=== PATIENT | male | born 1965 | race Two or more races ===

== ENCOUNTER 2016-12-28 13:26 | Outpatient (CLI) | payer MEDICAID ==
--- NOTE | 2016-12-28 15:40 | Ultrasound Report ---
LEFT GROIN ULTRASOUND: 12/28/2016 CLINICAL HISTORY: Left groin mass. There is also a remote history of cancer. TECHNIQUE: Real-time scanning was performed with traffic workforce representative static images obtained. FINDINGS: Left groin ultrasound shows no significant abnormality. No hernia or mass is seen. Findings on ultrasound are normal in the left groin. If there is still strong clinical concern liane yoder in regard to the left groin, recommend a contrast-enhanced pelvic CT with extension of the imagi ng through the groin for further evaluation. IMPRESSION: NORMAL LEFT GROIN ULTRASOUND. IF CLINICAL SYMPTOMS WARRANT, ADDITIONAL STUDIES COULD BE OBTAINED SUCH CONTRAST-ENHANCED CT OF THE PELVIS WITH IMAGING EXTENDING THROUGH THE GROIN. JOB #: [id number] EXT JOB #:[id number]
== END 2016-12-28 13:27 | disposition home or self-care (01) ==
LOC: DI 13:26
PROVIDERS: ATTEND Nurse Practitioner Family
DX: R19.09 Other intra-abdominal and pelvic swelling, mass and lump (principal)
CPT/HCPCS: 76857

== ENCOUNTER 2017-01-18 11:08 | Outpatient (CLI) | payer MEDICAID ==
[2017-01-18 17:48] LABS: BASOPHILS % (AUTO) 0.2 %; EOSINOPHILS # (AUTO) 0.1 10^3/uL (0.0-0.7); EOSINOPHILS % (AUTO) 1.4 %; HCT - HEMATOCRIT 40.7 % (42.0-52.0); HGB - HEMOGLOBIN 13.9 g/dL (14.0-18.0); LYMPHOCYTES # (AUTO) 0.6 10^3/uL (1.5-3.5); LYMPHOCYTES % (AUTO) 9.5 %; MEAN CORPUSCULAR HEMOGLOBIN 32.8 pg (27.0-31.0); MEAN CORPUSCULAR HGB CONC 34.3 g/dL (32.0-36.0); MEAN CORPUSCULAR VOLUME 95.5 fL (80.0-94.0); MEAN PLATELET VOLUME 9.8 fL (7.4-11.4); MONOCYTES # (AUTO) 0.4 10^3/uL (0.0-1.0); MONOCYTES % (AUTO) 5.8 %; NEUTROPHILS # (AUTO) 5.1 10^3/uL (1.5-6.6); NEUTROPHILS % (AUTO) 83.1 %; RED BLOOD COUNT 4.26 10^6/uL (4.70-6.10); RED CELL DISTRIBUTION WIDTH 13.4 % (12.0-15.0); UNCORRECTED WHITE BLOOD COUNT 6.1 x10^3/uL; WHITE BLOOD COUNT 6.1 x10^3/uL (4.8-10.8)
[2017-01-18 18:07] LABS: ALBUMIN/GLOBULIN RATIO 1.4 (1.0-2.2); BILIRUBIN,TOTAL 1.2 mg/dL (0.2-1.0); BUN - BLOOD UREA NITROGEN 12 mg/dL (6-20); CALCIUM 9.4 mg/dL (8.5-10.3); CARBON DIOXIDE - CO2 25 mmol/L (21-32); CHLORIDE 106 mmol/L (101-111); CHOL/HDL RATIO 2.6 (<5.0); CHOLESTEROL 155 mg/dL; CREATININE 0.7 mg/dL (0.6-1.2); GFR - MDRD 120 (>89); GLUCOSE 104 mg/dL (70-100); HDL CHOLESTEROL 59 mg/dL; LDL/HDL RATIO 1.4 (<3.6); POTASSIUM 3.7 mmol/L (3.5-5.0); SODIUM 141 mmol/L (135-145); TOTAL PROTEIN 7.2 g/dL (6.7-8.2); TRIGLYCERIDES 62 mg/dL; VLDL CHOLESTEROL 12 mg/dL
[2017-01-18 18:34] LABS: THYROID STIMULATING HORMONE 1.49 uIU/mL (0.34-5.60)
== END 2017-01-18 11:09 | disposition home or self-care (01) ==
LOC: LAB.F 11:08
PROVIDERS: ATTEND Nurse Practitioner Family
DX: I10 Essential (primary) hypertension (principal); F41.8 Other specified anxiety disorders
CPT/HCPCS: 36415; 80053; 80061; 84439; 84443; 85025

== ENCOUNTER 2017-02-20 13:56 | Outpatient (CLI) | payer MEDICAID ==
[2017-02-20] MEDS ORDERED: IOPAMIDOL-300 100 ML VIAL IVP ONE (16:18)
[2017-02-20] MEDS ORDERED: IOPAMIDOL-300 50 ML VIAL PO ONE (16:18)
--- NOTE | 2017-02-21 12:23 | CT Report ---
CONTRAST-ENHANCED CT EXAM OF THE ABDOMEN AND PELVIS: 02/20/2017 CLINICAL HISTORY: Patient has pain in the left inguinal region. TECHNIQUE: Patient was given oral contrast material. An hour later, patient received 100 mL of Isovue-[address] scan of the abdomen and pelvis was done at 5 x 5 mm intervals in axial, coronal, and sagittal reconstruction images. COMPARISON: 03/23/2016. FINDINGS: Lower lung mcfadden show no significant abnormality. The liver demonstrates calcification probably along a suture line in the adjacent loop of bowel. Patient appears to have had some sort of gastric surgery, possibly gastric bypass surgery. There are also multiple surgical sutures noted in some small bowel loops, most likely a result of a bypass surgery. There is a pseudosacculation once again noted of a loop of jejunum or distal third of the duodenum adjacent to the ligament of Treitz. This has been seen on preceding exam and most likely is a result of a prior gastric bypass surgery. The right colon appears to be attenuated, either a result of prior surgery or developmental variation. No significant diverticula are seen. No significant small bowel obstruction is noted. Liver, spleen, and pancreas appear normal. Surgical clips are noted in the rene hepatis related to a prior cholecystectomy. Common hepatic and common bile duct are not distended. Adrenal glands are normal. Left kidney appears normal. Right kidney demonstrates a benign cyst extending from its posterior aspect with CT numbers of 12 and measuring 2.3 cm. Each pyelocaliceal system shows no significant distention. Kidneys show no calculi. Ureters show no significant abnormality. Periaortic and pericaval regions appear normal. Lower lung mcfadden appear normal. Small ventral hernia is noted in the anterior abdominal wall just to the right of the midline in the upper half of the abdomen. Defect in the anterior abdominal wall at this point measures 2.3 cm by 3.5 cm. Mesenteric fat is seen herniated through this defect in the anterior abdominal wall. Immediately superior to the aforementioned defect is a second small defect in the anterior abdominal wall. This defect measures 3.2 cm by 1.3 cm with some mesenteric fat herniated through the defect. There is a small right inguinal hernia noted measuring 3.5 cm by 2.7 cm by 7 cm. Prominent scarring is once again seen in the subcutaneous soft tissues adjacent to the anterior aspect of the anterior wall of the pelvis. The scarring is not significantly changed since 03/23/2016 and most likely represents postsurgical scar. It measures 9.2 cm by 2 cm by 4 cm. The periaortic and pericaval regions show no significant abnormality. Mild osteoarthritis of the lumbar spine and lower thoracic spine with anterior spur formation. As compared to patient's preceding exam, dated 03/23/2016, interval attenuation of the right colon is noted. This most likely is the result of a partial surgical resection of the cecum and ascending colon. Recommend clinical correlation. IMPRESSION: 1. INTERVAL SUGGESTION OF PARTIAL SURGICAL RESECTION OF THE CECUM AND PROXIMAL ASCENDING COLON. RECOMMEND CLINICAL CORRELATION. 2. TWO SMALL VENTRAL HERNIAS ARE NOTED IN THE UPPER HALF OF THE ABDOMEN. THESE HERNIAS ARE WITHIN THE MIDLINE OR IMMEDIATELY ADJACENT TO THE MIDLINE. THESE ARE UNCHANGED COMPARED TO PRECEDING EXAM. SMALL AMOUNT OF MESENTERIC FAT IS SEEN HERNIATED THROUGH EACH OF THE ANTERIOR ABDOMINAL WALL DEFECTS. THESE DEFECTS DO NOT CONTAIN BOWEL. 3. EVIDENCE OF PREVIOUS GASTRIC BYPASS SURGERY AND PRIOR CHOLECYSTECTOMY. 4. SMALL RIGHT INGUINAL HERNIA IS NOTED CONTAINING SOME MESENTERIC FAT. THIS FINDING IS UNCHANGED. 5. PROMINENT AREA OF SCARRING IS ONCE AGAIN NOTED IN THE SUBCUTANEOUS SOFT TISSUES IMMEDIATELY ANTERIOR TO THE LOWER ABDOMINAL/PELVIC WALL. IT IS UNCHANGED. JOB #: [id number] EXT JOB #: [id number] HUYEN
== END 2017-02-20 13:57 | disposition home or self-care (01) ==
LOC: DI 13:56
PROVIDERS: ATTEND Family Medicine
DX: K43.9 Ventral hernia without obstruction or gangrene (principal); K40.90 Unilateral inguinal hernia, without obstruction or gangrene, not specified as recurrent; Z90.49 Acquired absence of other specified parts of digestive tract
CPT/HCPCS: 74177; Q9967

== ENCOUNTER 2017-02-20 14:11 | Outpatient (CLI) | payer MEDICAID | END 2017-02-20 14:12 | disposition home or self-care (01) | LOC: DI 14:11 | PROVIDERS: ATTEND Family Medicine | DX: Z53.9 Procedure and treatment not carried out, unspecified reason (principal) ==

== ENCOUNTER 2017-09-19 16:26 | Outpatient (CLI) | payer MEDICAID ==
--- NOTE | 2017-09-20 09:28 | XRAY Report ---
TWO VIEW CHEST: 09/19/2017 CLINICAL INDICATION: Cough. FINDINGS: Frontal and lateral views of the chest demonstrate a normal cardiac silhouette. The lungs remain clear. No effusion or pneumothorax is present. IMPRESSION: NORMAL CHEST. TD: 09/20/2017 09:27
== END 2017-09-19 16:27 | disposition home or self-care (01) ==
LOC: DI.S 16:26
PROVIDERS: ATTEND Nurse Practitioner Family
DX: R05 Cough (principal)
CPT/HCPCS: 71046

== ENCOUNTER 2017-10-22 08:00 | Outpatient (CLI) | payer MEDICAID ==
[2017-10-22 17:57] LABS: BASOPHILS % (AUTO) 0.5 %; EOSINOPHILS # (AUTO) 0.1 10^3/uL (0.0-0.7); EOSINOPHILS % (AUTO) 2.3 %; HGB - HEMOGLOBIN 14.2 g/dL (14.0-18.0); LYMPHOCYTES # (AUTO) 0.7 10^3/uL (1.5-3.5); LYMPHOCYTES % (AUTO) 12.6 %; MEAN CORPUSCULAR HEMOGLOBIN 31.6 pg (27.0-31.0); MEAN CORPUSCULAR HGB CONC 33.3 g/dL (32.0-36.0); MEAN CORPUSCULAR VOLUME 94.9 fL (80.0-94.0); MEAN PLATELET VOLUME 8.7 fL (7.4-11.4); MONOCYTES # (AUTO) 0.3 10^3/uL (0.0-1.0); MONOCYTES % (AUTO) 5.8 %; NEUTROPHILS # (AUTO) 4.5 10^3/uL (1.5-6.6); NEUTROPHILS % (AUTO) 78.8 %; PLT - PLATELET COUNT 207 10^3/uL (130-450); RED BLOOD COUNT 4.48 10^6/uL (4.70-6.10); RED CELL DISTRIBUTION WIDTH 13.2 % (12.0-15.0); WHITE BLOOD COUNT 5.7 x10^3/uL (4.8-10.8)
[2017-10-22 18:30] LABS: % IRON SATURATION 27 % (20-50); GAMMA GLUTAMYL TRANSPEPTIDASE 49 IU/L (8-55); IRON 122 ug/dL (45-182); TOTAL IRON BINDING CAPACITY 459 ug/dL (250-450); TRANSFERRIN 328 mg/dL (180-329)
[2017-10-22 18:33] LABS: FERRITIN 63.6 ng/mL (23.9-336.2)
[2017-10-22 18:36] LABS: FOLATE 8.9 ng/mL (5.90 - >24.8)
== END 2017-10-22 08:01 | disposition home or self-care (01) ==
LOC: LAB.F 08:00
PROVIDERS: ATTEND Nurse Practitioner Family
DX: D53.9 Nutritional anemia, unspecified (principal)
CPT/HCPCS: 36415; 82607; 82728; 82746; 82747; 82977; 83540; 84466; 85025

== ENCOUNTER 2017-11-02 10:17 | Outpatient (CLI) | payer MEDICAID | END 2017-11-02 10:18 | disposition critical access hospital (66) | LOC: EMS 10:17 | PROVIDERS: ATTEND Surgery | DX: M54.5 Low back pain (principal) | CPT/HCPCS: A0425; A0427 ==

== ENCOUNTER 2017-11-02 10:41 | Emergency (ER) | payer MEDICAID ==
[2017-11-02] MEDS ORDERED: ONDANSETRON 4 MG/2 ML VIAL IVP STA (11:49)
[2017-11-02] MEDS ORDERED: KETOROLAC 60 MG/2 ML VIAL IVP STA (11:49)
[2017-11-02] MEDS ORDERED: SODIUM CHLORIDE 0.9% 1,000 ML IV ONE (11:49)
[2017-11-02 12:05] LABS: BASOPHILS % (AUTO) 0.3 %; EOSINOPHILS # (AUTO) 0.1 10^3/uL (0.0-0.7); EOSINOPHILS % (AUTO) 1.5 %; HGB - HEMOGLOBIN 13.4 g/dL (14.0-18.0); LYMPHOCYTES # (AUTO) 0.7 10^3/uL (1.5-3.5); LYMPHOCYTES % (AUTO) 9.4 %; MEAN CORPUSCULAR HEMOGLOBIN 32.6 pg (27.0-31.0); MEAN CORPUSCULAR HGB CONC 34.1 g/dL (32.0-36.0); MEAN CORPUSCULAR VOLUME 95.8 fL (80.0-94.0); MEAN PLATELET VOLUME 8.2 fL (7.4-11.4); MONOCYTES # (AUTO) 0.4 10^3/uL (0.0-1.0); MONOCYTES % (AUTO) 5.7 %; NEUTROPHILS % (AUTO) 83.1 %; PLT - PLATELET COUNT 185 10^3/uL (130-450); RED BLOOD COUNT 4.12 10^6/uL (4.70-6.10); RED CELL DISTRIBUTION WIDTH 13.2 % (12.0-15.0); WHITE BLOOD COUNT 7.2 x10^3/uL (4.8-10.8)
[2017-11-02 12:17] LABS: ALBUMIN/GLOBULIN RATIO 1.3 (1.0-2.2); BILIRUBIN,TOTAL 0.6 mg/dL (0.2-1.0); CALCIUM 8.6 mg/dL (8.5-10.3); CREATININE 0.7 mg/dL (0.6-1.2); TOTAL PROTEIN 7.1 g/dL (6.7-8.2)
[2017-11-02 12:35] LABS: BILIRUBIN,URINE NEGATIVE (NEGATIVE); GLUCOSE, URINE (UA) NEGATIVE (NEGATIVE); KETONES,URINE (UA) NEGATIVE (NEGATIVE); LEUKOCYTE ESTERASE, URINE NEGATIVE (NEGATIVE); NITRITE,URINE NEGATIVE (NEGATIVE); OCCULT BLOOD,URINE NEGATIVE (NEGATIVE); PH,URINE 5.5 PH (5.0-7.5); PROTEIN,URINE NEGATIVE (NEGATIVE); UROBILINOGEN,URINE 0.2 (NORMAL) E.U./dL (NORMAL)
[2017-11-02 12:37] LABS: CLARITY,URINE CLEAR (CLEAR)
[2017-11-02] MEDS ORDERED: DEXAMETHASONE 10 MG/ML VIAL IVP STA (12:50)
--- NOTE | 2017-11-02 12:52 | ED Physician Documentation ---
PD HPI BACK PAIN - Stated complaint Stated Complaint: BACK PX - Chief complaint Chief Complaint: Back Pain - History obtained from History obtained from: Patient - History of Present Illness Timing - onset: Yesterday Timing - details: Still present Location: Lower, Left Quality: Pain Worsened by: Movement, Twisting Similar symptoms before: Diagnosis (He reports history of similar symptoms in the past with kidney stones. He also reports history of chronic, recurrent back pain.) - Treatment prior to arrival Treatment prior to arrival: Medics administered fentanyl 150 g IV in the prehospital setting. - Additional information Additional information: The patient is a 52-year-old male who presents with left lower back pain that started yesterday and become worse today. He denies any traumatic injury. He has a history of recurrent episodes of back pain in the past, but never this bad before. He also has a history of kidney stones and states that this feels similar to when he had kidney stone. He denies fever, abdominal pain, nausea or vomiting, dysuria or urinary incontinence. He denies numbness or weakness in his lower extremities, and denies sacral anesthesia. Review of Systems Constitutional: denies: Fever Nose: denies: Congestion Cardiac: denies: Chest pain / pressure Respiratory: denies: Dyspnea, Cough GI: denies: Abdominal Pain, Nausea, Vomiting : denies: Dysuria, Incontinent Skin: denies: Rash Musculoskeletal: reports: Back pain. denies: Extremity pain Neurologic: denies: Focal weakness, Numbness, Headache PD PAST MEDICAL HISTORY - Past Medical History Cardiovascular: None Respiratory: None Neuro: CVA, Seizure disorder GI: None : None HEENT: None Psych: Depression, Anxiety, Post traumatic stress disorder Musculoskeletal: Chronic back pain Derm: None - Past Surgical History Past Surgical History: Yes General: Appendectomy, Bowel surgery, Colonoscopy Ortho: Other - Present Medications Home Medications: Ambulatory Orders Medication Instructions Recorded Confirmed Ferrous Sulfate 325 mg PO BID 03/23/16 04/13/16 Promethazine [Phenergan] 25 - 50 mg PO Q6H PRN #10 tab 03/23/16 04/21/16 HYDROmorphone [Dilaudid] 6 mg PO Q4-6H PRN 04/13/16 04/21/16 Prazosin [Minipress] 1 mg PO DAILY 04/21/16 04/21/16 Hydromorphone HCl [Dilaudid] 4 mg PO Q6HR PRN #20 tablet 04/28/16 Cyclobenzaprine [Flexeril] 10 mg PO TID PRN #20 tablet 11/02/17 HYDROcod/ACETAM 5/325 [[place] 5/325] 1 - 2 ea PO Q6H PRN #20 tablet 11/02/17 predniSONE [Prednisone] 30 mg PO DAILY #15 tablet 11/02/17 - Allergies Allergies/Adverse Reactions: Allergies Allergy/AdvReac Type Severity Reaction Status Date / Time oxycodone AdvReac Itching Verified 11/02/17 10:53 tramadol AdvReac Itching Verified 11/02/17 10:53 - Social History Does the pt smoke?: No Smoking Status: Former smoker Does the pt drink ETOH?: Yes Does the pt have substance abuse?: No - Immunizations Immunizations are current?: No - POLST Patient has POLST: No PD ED PE NORMAL - Vitals Vital signs reviewed: Yes (Initially hypertensive.) - General General: Alert and oriented X 3, Other (Significantly overweight, and deconditioned.) - HEENT HEENT: Atraumatic, Moist mucous membranes, Pharynx benign - Neck Neck: No adenopathy - Cardiac Cardiac: RRR, No murmur - Respiratory Respiratory: No respiratory distress, Clear bilaterally - Back Back: No CVA TTP, No spinal TTP, Other (There is tenderness to palpation in the left lower para lumbar musculature. There is no tenderness to palpation over the spinous processes.) - Derm Derm: No rash - Extremities Extremities: No edema, No calf tenderness / cord, Other (Straight leg raise test is negative bilaterally.) - Neuro Neuro: Alert and oriented X 3, No motor deficit, No sensory deficit, Other ( Deep tendon reflexes are 2+ and equal bilaterally at the patellar and Achilles tendons.) Results - Vitals Vitals: Oxygen O2 Source Room air - Labs Labs: Laboratory Tests 11/02/17 11/02/17 11/02/17 12:01 12:01 12:28 WBC 7.2 RBC 4.12 L Hgb 13.4 L Hct 39.5 L MCV 95.8 H MCH 32.6 H MCHC 34.1 RDW 13.2 Plt Count 185 MPV 8.2 Neut # 6.0 Lymph # 0.7 L Porter # 0.4 Eos # 0.1 Baso # 0.0 Absolute Nucleated RBC 0.00 Nucleated RBC % 0.0 Sodium 134 L Potassium 3.9 Chloride 103 Carbon Dioxide 25 Anion Gap 6.0 BUN 15 Creatinine 0.7 Estimated GFR (MDRD) 119 Glucose 97 Calcium 8.6 Total Bilirubin 0.6 AST 26 ALT 21 Alkaline Phosphatase 47 Total Protein 7.1 Albumin 4.0 Globulin 3.1 Albumin/Globulin Ratio 1.3 Lipase 26 Urine Color YELLOW Urine Clarity CLEAR Urine pH 5.5 Ur Specific [place] >=1.030 H Urine Protein NEGATIVE Urine Glucose (UA) NEGATIVE Urine Ketones NEGATIVE Urine Occult Blood NEGATIVE Urine Nitrite NEGATIVE Urine Bilirubin NEGATIVE Urine Urobilinogen 0.2 (NORMAL) Ur Leukocyte Esterase NEGATIVE Ur Microscopic Review NOT INDICATED Urine Culture Comments NOT INDICATED PD MEDICAL DECISION MAKING - ED course Complexity details: reviewed results, re-evaluated patient, considered differential, d/w patient ED course: The patient's presentation is most consistent with musculoskeletal lower back pain. I doubt renal colic given his clinical presentation, and negative urinalysis. CBC and chemistry panel are also unremarkable. Treatment in the emergency department included administration of normal saline 1 L IV, Zofran 4 mg IV, ketorolac 30 mg IV, and dexamethasone 10 mg IV. He was also given Dilaudid 1 mg IV. At the time of discharge she felt subjectively much improved. He is being discharged with a prescription for prednisone, Flexeril, and Vicodin, 20 tablets. I discussed with him the diagnosis, symptomatic treatment and outpatient follow-up, as well as potentially worrisome signs or symptoms that should prompt reevaluation in the emergency department. Departure - Departure Disposition: 01 Home, Self Care Clinical Impression: Back pain Qualifiers: Back pain location: low back pain Chronicity: acute Back pain laterality: left Sciatica presence: without sciatica Qualified Code(s): M54.5 - Low back pain Condition: Stable Instructions: ED Low Back Pain Injury Follow-Up: Thuy Rocha ARNP [Credentialed Staff Provider] - Prescriptions: Cyclobenzaprine [Flexeril] 10 mg PO TID PRN #20 tablet PRN Reason: Spasms HYDROcod/ACETAM 5/325 [[place] 5/325] 1 - 2 ea PO Q6H PRN #20 tablet PRN Reason: Pain predniSONE [Prednisone] 30 mg PO DAILY #15 tablet Comments: Apply ice pack to your lower back intermittently for the next 4 days. You can use Flexeril as prescribed if needed for muscle spasms. Take prednisone daily for 5 days as prescribed. You can use Vicodin as prescribed if needed for pain. You can also use ibuprofen, up to 800 mg 3 times daily for its anti- inflammatory effect. Follow up with your primary physician within 2 weeks. Call to schedule an appointment. Return to the emergency department if you develop increasing pain, fever, urinary incontinence, or otherwise worsening symptoms. Discharge Date/Time: 11/02/17 13:25
[2017-11-02] MEDS ORDERED: HYDROmorphone 1 MG/ML CARPUJECT IVP STA (13:13)
[2017-11-02 13:26] VITALS: BP 132/88
== END 2017-11-02 13:25 | disposition home or self-care (01) ==
LOC: EDUNIT# → ED 10:41
DX: M54.5 Low back pain (principal); Z86.73 Personal history of transient ischemic attack (TIA), and cerebral infarction without residual deficits; Z87.891 Personal history of nicotine dependence
CPT/HCPCS: 36415; 80053; 81003; 83690; 85025; 96361; 96374; 96375; 99283; 99284; J1170; 81001; 87086

== ENCOUNTER 2019-03-28 16:38 | Outpatient (CLI) | payer MEDICAID | END 2019-03-28 16:39 | disposition critical access hospital (66) | LOC: EMS 16:38 | PROVIDERS: ATTEND Surgery | DX: R14.0 Abdominal distension (gaseous) (principal); R10.9 Unspecified abdominal pain; R09.89 Other specified symptoms and signs involving the circulatory and respiratory systems ==

== ENCOUNTER 2019-03-28 17:04 | Emergency (ER) | payer MEDICAID ==
[2019-03-28] MEDS ORDERED: LORazepam 2 MG/ML VIAL IVP STA ×4 (17:27→22:48)
[2019-03-28] MEDS ORDERED: THIAMINE INJ 100 MG in SODIUM CHLORIDE 0.9% 50 ML IV STA (17:27)
--- NOTE | 2019-03-28 17:29 | ED Physician Documentation ---
PD HPI DYSPNEA - Stated complaint Stated Complaint: SOA - History obtained from History obtained from: Patient - History of Present Illness Timing - onset: Other (53-year-old gentleman brought in by EMS for multiple complaints, he has been short of breath for a long time, there is associated weight gain, left leg swelling. He admits to severe chronic anxiety which he has been medicating by drinking alcohol. He drinks about 1/5 of alcohol per night. He feels shaky and anxious. He is depressed with vague suicidal ideation.) Review of Systems Ten Systems: 10 systems reviewed and negative Constitutional: reports: Fatigue. denies: Fever, Chills Nose: denies: Rhinorrhea / runny nose, Congestion Throat: denies: Sore throat Cardiac: denies: Chest pain / pressure, Palpitations Respiratory: reports: Dyspnea, Cough GI: denies: Abdominal Pain PD PAST MEDICAL HISTORY - Past Medical History Cardiovascular: None Respiratory: None GI: None : None HEENT: None Psych: Depression, Anxiety, Post traumatic stress disorder Musculoskeletal: Chronic back pain Derm: None - Past Surgical History Past Surgical History: Yes General: Appendectomy, Bowel surgery, Colonoscopy Ortho: Other - Present Medications Home Medications: Ambulatory Orders Medication Instructions Recorded Confirmed Lorazepam [Ativan] 1 mg PO TID PRN #15 tablet 03/28/19 - Allergies Allergies/Adverse Reactions: Allergies Allergy/AdvReac Type Severity Reaction Status Date / Time oxycodone AdvReac Itching Verified 03/28/19 17:32 tramadol AdvReac Itching Verified 03/28/19 17:32 - Social History Does the pt smoke?: No Smoking Status: Former smoker Does the pt drink ETOH?: Yes Does the pt have substance abuse?: No - Immunizations Immunizations are current?: No - POLST Patient has POLST: No PD ED PE NORMAL - Vitals Vital signs reviewed: Yes - General General: Alert and oriented X 3, Other (He is shaky, pressured speech, very anxious, tearful) - HEENT HEENT: PERRL (With bloodshot eyes) - Neck Neck: Supple, no meningeal sign, No bony TTP - Cardiac Cardiac: Other (Tachycardic, regular, no murmur) - Respiratory Respiratory: No respiratory distress, Clear bilaterally - Abdomen Abdomen: Soft, Non tender - Back Back: No CVA TTP, No spinal TTP - Extremities Extremities: Other (Mild bilateral pitting pedal edema, not much asymmetry, he feels like the left is worse than the right.) - Neuro Neuro: Alert and oriented X 3, dross puller 2-12 intact, No motor deficit, No sensory deficit, Normal speech Results - Vitals Vitals: Vital Signs - 24 hr 03/31/19 04/01/19 22:07 08:10 Heart Rate 78 103 H Respiratory 16 16 Rate Blood Pressure 132/92 H 145/95 H O2 Saturation 98 96 Oxygen O2 Source Room air - EKG (time done) 1712 Rate: Rate (enter#) (110) Rhythm: Sinus tachycardia, LAE [place]: Normal Intervals: Normal ME QRS: Normal Ischemia: Normal ST segments Computer interpretation: Agree with computer - Labs Labs: Laboratory Tests 03/28/19 03/28/19 03/28/19 17:37 17:37 17:37 WBC 6.3 RBC 4.20 L Hgb 14.4 Hct 41.7 L MCV 99.3 H MCH 34.3 H MCHC 34.5 RDW 14.4 Plt Count 177 MPV 9.9 Neut # (Auto) 5.3 Lymph # (Auto) 0.4 L Desha # (Auto) 0.5 Eos # (Auto) 0.0 Baso # (Auto) 0.0 Absolute Nucleated RBC 0.00 Nucleated RBC % 0.0 VBG pH VBG pCO2 VBG pO2 VBG HCO3 VBG Total CO2 VBG O2 Saturation VBG Base Excess Sodium 140 Potassium 3.7 Chloride 100 L Carbon Dioxide 27 Anion Gap 13.0 BUN 6 Creatinine 0.6 Estimated GFR (MDRD) 142 Glucose 131 H Calcium 9.2 Total Bilirubin 1.5 H AST 205 H ALT 116 H Alkaline Phosphatase 88 Troponin I High Sens 12.7 Total Protein 8.0 Albumin 4.2 Globulin 3.8 Albumin/Globulin Ratio 1.1 Lipase 46 TSH Urine Color Urine Clarity Urine pH Ur Specific [place] Urine Protein Urine Glucose (UA) Urine Ketones Urine Occult Blood Urine Nitrite Urine Bilirubin Urine Urobilinogen Ur Leukocyte Esterase Ur Microscopic Review Urine Culture Comments Salicylates < 6.0 Urine Opiates Screen Ur Oxycodone Screen Urine Methadone Screen Ur Propoxyphene Screen Acetaminophen < 10 L Ur Barbiturates Screen Ur Tricyclics Screen Ur Phencyclidine Scrn Ur Amphetamine Screen U Methamphetamines Scrn U Benzodiazepines Scrn Urine Cocaine Screen U Cannabinoids Screen Ethyl Alcohol < 5.0 03/28/19 03/28/19 03/28/19 17:37 17:37 20:15 WBC RBC Hgb Hct MCV MCH MCHC RDW Plt Count MPV Neut # (Auto) Lymph # (Auto) Desha # (Auto) Eos # (Auto) Baso # (Auto) Absolute Nucleated RBC Nucleated RBC % VBG pH 7.532 H VBG pCO2 33.0 L VBG pO2 92.1 H VBG HCO3 27.1 VBG Total CO2 28.1 VBG O2 Saturation 97.4 H VBG Base Excess 4.9 H Sodium Potassium Chloride Carbon Dioxide Anion Gap BUN Creatinine Estimated GFR (MDRD) Glucose Calcium Total Bilirubin AST ALT Alkaline Phosphatase Troponin I High Sens Total Protein Albumin Globulin Albumin/Globulin Ratio Lipase TSH 2.82 Urine Color Urine Clarity Urine pH Ur Specific [place] Urine Protein Urine Glucose (UA) Urine Ketones Urine Occult Blood Urine Nitrite Urine Bilirubin Urine Urobilinogen Ur Leukocyte Esterase Ur Microscopic Review Urine Culture Comments Salicylates Urine Opiates Screen NEGATIVE Ur Oxycodone Screen NEGATIVE Urine Methadone Screen NEGATIVE Ur Propoxyphene Screen NEGATIVE Acetaminophen Ur Barbiturates Screen NEGATIVE Ur Tricyclics Screen NEGATIVE Ur Phencyclidine Scrn NEGATIVE Ur Amphetamine Screen NEGATIVE U Methamphetamines Scrn NEGATIVE U Benzodiazepines Scrn POSITIVE H Urine Cocaine Screen NEGATIVE U Cannabinoids Screen NEGATIVE Ethyl Alcohol 03/28/19 20:15 WBC RBC Hgb Hct MCV MCH MCHC RDW Plt Count MPV Neut # (Auto) Lymph # (Auto) Desha # (Auto) Eos # (Auto) Baso # (Auto) Absolute Nucleated RBC Nucleated RBC % VBG pH VBG pCO2 VBG pO2 VBG HCO3 VBG Total CO2 VBG O2 Saturation VBG Base Excess Sodium Potassium Chloride Carbon Dioxide Anion Gap BUN Creatinine Estimated GFR (MDRD) Glucose Calcium Total Bilirubin AST ALT Alkaline Phosphatase Troponin I High Sens Total Protein Albumin Globulin Albumin/Globulin Ratio Lipase TSH Urine Color DARK YELLOW Urine Clarity CLEAR Urine pH 6.5 Ur Specific [place] <=1.005 Urine Protein TRACE Urine Glucose (UA) NEGATIVE Urine Ketones TRACE Urine Occult Blood NEGATIVE Urine Nitrite NEGATIVE Urine Bilirubin NEGATIVE Urine Urobilinogen 1 (NORMAL) Ur Leukocyte Esterase NEGATIVE Ur Microscopic Review NOT INDICATED Urine Culture Comments NOT INDICATED Salicylates Urine Opiates Screen Ur Oxycodone Screen Urine Methadone Screen Ur Propoxyphene Screen Acetaminophen Ur Barbiturates Screen Ur Tricyclics Screen Ur Phencyclidine Scrn Ur Amphetamine Screen U Methamphetamines Scrn U Benzodiazepines Scrn Urine Cocaine Screen U Cannabinoids Screen Ethyl Alcohol - Rads (name of study) Ct Angio chest Radiology: EMP read contemporaneously (JORGE) PD MEDICAL DECISION MAKING - ED course ED course: This is a 53-year-old gentleman who presents with chest pain, shortness of breath, and clearly an overlying issue with depression, anxiety, alcohol abuse, and suicidal ideation with fleeting plans. He has a lot of risk factors. His medical work-up was negative except for mild liver inflammation likely from alcohol, but cardiac work-up was negative. No PE on CT. He agreed to spend the night in the department for observation and to talk to the social workers in the morning for consideration for psychiatric placement which I believe would be a great idea for him. Unfortunately that I was told that the social sciences research scientist was not available in the morning. He self-referred to [facility] and told they will likely have a bed for him in the morning. However we later learned that it was not an appropriate facility given active SI and remained in the ED while awaiting placement and eventually accepted at [facility]. Departure - Departure Disposition: 65 Psych Hosp/Unit DC/Xfer Clinical Impression: Anxiety Dyspnea Qualifiers: Dyspnea type: shortness of breath Qualified Code(s): R06.02 - Shortness of breath Alcohol withdrawal Qualifiers: Complication of substance-induced condition: uncomplicated Qualified Code(s): F10.230 - Alcohol dependence with withdrawal, uncomplicated Depression Qualifiers: Depression Type: major depressive disorder Major depression recurrence: unspecified whether recurrent Active/Remission status: currently active Major depression episode severity: severe Psychotic features: without psychotic features Qualified Code(s): F32.2 - Major depressive disorder, single episode, severe without psychotic features Condition: Good Record reviewed to determine appropriate education?: Yes Instructions: ED Withdrawal Alcohol, ED Depression Prescriptions: Lorazepam [Ativan] 1 mg PO TID PRN #15 tablet PRN Reason: Anxiety Comments: Go directly to the crisis center for further evaluation and treatment.
[2019-03-28 17:42] LABS: BASOPHILS % (AUTO) 0.3 %; EOSINOPHILS % (AUTO) 0.6 %; HGB - HEMOGLOBIN 14.4 g/dL (14.0-18.0); LYMPHOCYTES # (AUTO) 0.4 10^3/uL (1.5-3.5); MEAN CORPUSCULAR HEMOGLOBIN 34.3 pg (27.0-31.0); MEAN CORPUSCULAR HGB CONC 34.5 g/dL (32.0-36.0); MEAN CORPUSCULAR VOLUME 99.3 fL (80.0-94.0); MEAN PLATELET VOLUME 9.9 fL (7.4-11.4); MONOCYTES # (AUTO) 0.5 10^3/uL (0.0-1.0); MONOCYTES % (AUTO) 7.3 %; NEUTROPHILS # (AUTO) 5.3 10^3/uL (1.5-6.6); NEUTROPHILS % (AUTO) 84.5 %; PLT - PLATELET COUNT 177 10^3/uL (130-450); RED CELL DISTRIBUTION WIDTH 14.4 % (12.0-15.0); WHITE BLOOD COUNT 6.3 x10^3/uL (4.8-10.8)
[2019-03-28] MEDS ORDERED: IOVERSOL 320 100 ML VIAL IVP ONE ×2 (17:42→18:50)
[2019-03-28 17:57] LABS: ACETAMINOPHEN < 10 ug/mL (10-30); ALBUMIN 4.2 g/dL (3.2-5.5); ALBUMIN/GLOBULIN RATIO 1.1 (1.0-2.2); ALKALINE PHOSPHATASE 88 IU/L (42-121); ALT ALANINE AMINOTRANSFERASE 116 IU/L (10-60); AST ASPARTATE AMINOTRANSFERASE 205 IU/L (10-42); BILIRUBIN,TOTAL 1.5 mg/dL (0.2-1.0); BUN - BLOOD UREA NITROGEN 6 mg/dL (6-20); CALCIUM 9.2 mg/dL (8.5-10.3); CARBON DIOXIDE - CO2 27 mmol/L (21-32); CHLORIDE 100 mmol/L (101-111); CREATININE 0.6 mg/dL (0.6-1.2); GFR - MDRD 142 (>89); GLUCOSE 131 mg/dL (70-100); LIPASE 46 U/L (22-51); SALICYLATE < 6.0 mg/dL; SODIUM 140 mmol/L (135-145); VBG BASE EXCESS 4.9 mmol/L (-2 - +2); VBG PH 7.532 (7.31-7.41); VBG PO2 92.1 mmHg (25-47); VBG TOTAL CO2 28.1 mmol/L (24-29)
--- NOTE | 2019-03-28 19:22 | CT Report ---
Reason: dyspnea Procedure Date: 03/28/2019 Accession Number: [id number] / [id number] Procedure: CT - ANGIO CHEST W/WO CPT Code: FULL RESULT: EXAM: CT ANGIOGRAM CHEST EXAM DATE: 03/28/2019 06:38 PM. CLINICAL HISTORY: Dyspnea. COMPARISON: None. TECHNIQUE: Routine helical imaging was performed through the chest in the pulmonary arterial phase. IV Contrast: Optiray 320 80 mL. Reconstructions: Coronal 3-D MIP reconstructions.Sagittal and coronal. In accordance with CT protocol optimization, one or more of the following dose reduction techniques were utilized for this exam: automated exposure control, adjustment of mA and/or KV based on patient size, or use of iterative reconstructive technique. FINDINGS: Pulmonary Arteries: Diagnostic quality: Adequate through the segmental arteries. No evidence for acute or chronic pulmonary emboli. RV/LV is within normal limits. There is no interventricular septal bowing. There is no reflux of contrast material in the IVC. Lungs/Pleura: No consolidation, nodules, or edema. No effusions or pneumothorax. Mediastinum: Normal. No cardiac enlargement or adenopathy. Thoracic Aorta: Unremarkable. Upper Abdomen: Enlarged, hypodense liver. Status post gastric bypass surgery. Other: None. IMPRESSION: 1. No pulmonary embolism or acute airspace disease. 2. Fatty liver. RADIA
[2019-03-28] MEDS ORDERED: HALOPERIDOL 1 MG TABLET PO STA (19:38)
[2019-03-28 20:21] LABS: MUDS CUTOFF CONCENTRATIONS CUTOFF CONC BELOW:
[2019-03-28 20:23] LABS: GLUCOSE, URINE (UA) NEGATIVE (NEGATIVE); KETONES,URINE (UA) TRACE mg/dL (NEGATIVE); LEUKOCYTE ESTERASE, URINE NEGATIVE (NEGATIVE); NITRITE,URINE NEGATIVE (NEGATIVE); OCCULT BLOOD,URINE NEGATIVE (NEGATIVE); PH,URINE 6.5 PH (5.0-7.5); PROTEIN,URINE TRACE mg/dL (NEGATIVE); UROBILINOGEN,URINE 1 (NORMAL) E.U./dL (NORMAL)
[2019-03-28 20:26] LABS: BILIRUBIN,URINE NEGATIVE (NEGATIVE); CLARITY,URINE CLEAR (CLEAR); ICTOTEST,URINE NEGATIVE
[2019-03-28 20:33] LABS: AMPHETAMINE SCREEN,URINE NEGATIVE (NEGATIVE); BENZODIAZEPINES SCREEN, URINE POSITIVE (NEGATIVE); COCAINE SCREEN URINE NEGATIVE (NEGATIVE); METHADONE SCREEN, URINE NEGATIVE (NEGATIVE); METHAMPHETAMINES SCREEN, URINE NEGATIVE (NEGATIVE); OPIATE SCREEN, URINE NEGATIVE (NEGATIVE); OXYCODONE SCREEN, URINE NEGATIVE (NEGATIVE); PROPOXYPHENE SCREEN, URINE NEGATIVE (NEGATIVE); TRICYCLIC ANTIDEPRESSANT,URINE NEGATIVE (NEGATIVE)
[2019-03-29] MEDS ORDERED: LORazepam 2 MG/ML VIAL IVP STA (03:02)
--- NOTE | 2019-03-29 06:29 | TELEPSYCH PHYS NOTE ---
Telepsych Note - CHIEF COMPLAINT/HX OF PRESENT ILLNESS Cheif Complaint and History of Present Illness: Chief Complaint: depression HPI: The patient is a 53 yo male who reported to the ER with shortness of breath and alcohol withdrawal secondary to heavy drinking. While in the ER, the patient admitted to depressed mood and SI. When seen by psychiatry, the patient admitted to numerous stressors including separation from family, conflict with ex-, and declining health. The patient was so focused on his stressors that he was unable to provide much information. The patient had thoughts of killing himself via carbon monoxide poisoning but came to the ER for help instead. - SI/HI/SELF HARM SI/HI/SELF HARM (CURRENT OR HISTORY OF):: SI SI/HI/Self Harm Text (Current or History of):: patient never answered whether or not he had ever attempted suicide - VIOLENCE/LEGAL/COLLATERAL Violence - Legal - Collateral: Violence: none Legal: unknown Collateral: none - PSYCHIATRIC HX/TREATMENT HX Psychiatric: Depression, Anxiety, Post traumatic stress disorder Psychiatric/Treatment Hx Other: Past Psychiatric History: unclear if patient has prior inpatient admissions. No current outpatient treatment. - DRUG/ALCOHOL HX ETOH Use: Liquor - MEDICAL HX Does the pt have a hx of MRSA?: No Eyes, Ears, Nose, Throat: None Cardiovascular: None Respiratory: None Skin: None Gastrointestinal: None Urinary: None Musculoskeletal: Chronic back pain - SURGICAL HX General: Appendectomy, Bowel surgery, Colonoscopy Orthopedic: Other - ALLERGIES Allergies (as last confirmed): Allergies Allergy/AdvReac Type Severity Reaction Status Date / Time oxycodone AdvReac Itching Verified 03/28/19 17:32 tramadol AdvReac Itching Verified 03/28/19 17:32 - FAMILY PSYCH/SUICIDE/SOCIAL HX-MENTAL Family - Suicide - Social Hx and Mental Status Exam: Family Psychiatric History: unknown Social History: Employment: none 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 History: unknown Abuse: unknown Mental Status Examination: Attitude and behavior: cooperative Speech: hyperverbal Affect and mood: sad affect and mood Association and thought processes: linear Thought content: no delusions, + SI, no HI Perception: no hallucinations Sensorium, memory, and orientation: AAOx3 Intellectual functioning: average Insight and judgment: fair - PATIENT PROBLEM LIST (1) Depression Qualifiers: Depression Type: major depressive disorder Major depression recurrence: unspecified whether recurrent Active/Remission status: currently active Major depression episode severity: severe Psychotic features: without psychotic features Qualified Code(s): F32.2 - Major depressive disorder, single episode, severe without psychotic features Impression: The patient is a 53-year-old male with a history of depression who presents to the hospital with depressed mood and SI secondary to numerous stressors. The pat ient is not a safe discharge. Inpatient care recommended. Admit as voluntary and start antidepressants. - TREATMENT/PHARMACOLOGICAL RECOMMENDATION Treatment - Pharmacological - Therapy Recommendations: Treatment Recommendations: outpatient care Pharmacological: Effexor XR 37.5 mg daily Therapy: supportive Level of Care: inpatient - TIME SPENT & PROVIDER LOCATION Telepsych consultation conducted via videoconferencing: Yes List names and roles of persons who participated in consult: Fady Ramirez MD Telepsych Provider Location: [place] Time Telepsych consult began: 08:30 Time Telepsych consult completed: 08:50
--- NOTE | 2019-03-29 07:57 | ED Physician Documentation ---
ED Addendum - Addendum Addendum: Pt signed out to me, he is a 53 year old male presenting with alcohol withdrawal and SI. Telepsych recommendations are for inpatient admission. On my exam he is mildly tremulous, 5mg valium given with good effect. He is pending placement and has so far been declined because of the combination of alcohol withdrawal and SI. He was signed out to oncoming physician pending final placement. His alcohol withdrawal symptoms are mild and his benzodiazepine requirement appears to be decreasing. 03/30/19 00:01 Dispo, Condition, Instructions - Condition Condition: Good - Referrals - Instructions Frank Lookup: ED Withdrawal Alcohol, ED Depression
[2019-03-29] MEDS ORDERED: diazePAM 5 MG TABLET PO STA (08:50)
[2019-03-29] MEDS: VENLAFAXINE 37.5 MG TABLET PO SCH (09:06)
[2019-03-29] MEDS ORDERED: LORazepam 1 MG TABLET PO STA (17:05)
[2019-03-29] MEDS ORDERED: ONDANSETRON ODT 4 MG TABLET TL STA (17:11)
[2019-03-30] MEDS ORDERED: ONDANSETRON ODT 4 MG TABLET TL STA ×2 (00:40→16:32)
[2019-03-30] MEDS ORDERED: LORazepam 1 MG TABLET PO STA ×2 (00:41→06:15)
[2019-03-30] MEDS: VENLAFAXINE 37.5 MG TABLET PO SCH (10:19)
[2019-03-30] MEDS ORDERED: clonazePAM 0.5 MG TABLET PO STA (19:22)
[2019-03-31] MEDS ORDERED: clonazePAM 0.5 MG TABLET PO STA ×3 (01:04→23:59)
[2019-03-31] MEDS ORDERED: ACETAMINOPHEN 325 MG TABLET PO STA ×2 (06:35→23:44)
[2019-03-31] MEDS ORDERED: DEXAMETHASONE 10 MG/ML VIAL PO STA (06:57)
[2019-03-31] MEDS ORDERED: CHERRY SYRUP 10 ML UDC PO ONE (06:57)
[2019-03-31] MEDS: VENLAFAXINE 37.5 MG TABLET PO SCH (08:19)
[2019-04-01] MEDS ORDERED: DEXAMETHASONE 10 MG/ML VIAL PO STA (07:45)
[2019-04-01] MEDS ORDERED: ACETAMINOPHEN 325 MG TABLET PO STA (07:45)
[2019-04-01] MEDS ORDERED: METHOCARBAMOL 500 MG TABLET PO STA (07:45)
[2019-04-01] MEDS ORDERED: CHERRY SYRUP 10 ML UDC PO ONE (07:45)
[2019-04-01] MEDS ORDERED: ONDANSETRON ODT 4 MG TABLET TL STA (07:54)
[2019-04-01] MEDS: VENLAFAXINE 37.5 MG TABLET PO SCH (08:02)
[2019-04-01 08:11] VITALS: BP 145/95
[2019-04-01] MEDS ORDERED: clonazePAM 0.5 MG TABLET PO STA (13:31)
--- NOTE | 2019-04-01 15:51 | ED Physician Documentation ---
ED Addendum - Addendum Addendum: 04/01/19 15:49 The patient has remained stable here in the emergency department for the past several days while awaiting placement at a psychiatric facility. Social work was able to arrange placement for him today. He will be transferred to [facility]. There are no complications while here. Final diagnosis: Depression #2 anxiety #3 suicidal ideation #4 alcoholism Disposition: Patient is transferred to psychiatric hospital in stable condition. 04/01/19 15:51
== END 2019-04-01 16:50 ==
LOC: EDUNIT# → ED 17:04
DX: F32.2 Major depressive disorder, single episode, severe without psychotic features (principal); F41.9 Anxiety disorder, unspecified; R45.851 Suicidal ideations; F10.230 Alcohol dependence with withdrawal, uncomplicated; Z87.891 Personal history of nicotine dependence; Z75.1 Person awaiting admission to adequate facility elsewhere
CPT/HCPCS: 36415; 71275; 80053; 80306; 80307; 80320; 80329; 81003; 82803; 83690; 84443; 84484; 85025; 93005; 96365; 96375; 96376; 99284; 99285; A9270; J2060; J3411; J7040; J8499; Q0162; Q9967; 81001; 87086

== ENCOUNTER 2019-04-20 10:48 | Emergency (ER) | payer MEDICAID ==
--- NOTE | 2019-04-20 11:44 | ED Physician Documentation ---
PD HPI LOWER EXT INJURY - Stated complaint Stated Complaint: SWOLLEN LT ANKLE/PX - Chief complaint Chief Complaint: Ext Problem - History obtained from History obtained from: Patient - History of Present Illness PD HPI LOW EXT INJURY LOCATION: Left, Ankle (lateral malleolus) Type of injury: No: Fall, Twist, Blunt / blow, Laceration Timing - onset: How many days ago (has had pain left ankle without injury for past 2 days, worsening. Pain on ROM and with palpation.) Timing - details: Gradual onset Worsened by: Moving, Palpating Associated symptoms: Swelling, Discolored (red mildly). No: Weakness, Numbness Similar symptoms before: Has not had sx before Review of Systems Constitutional: denies: Fever, Chills, Myalgias Skin: denies: Abrasion (s), Laceration (s) Musculoskeletal: denies: Back pain Neurologic: denies: Focal weakness, Numbness PD PAST MEDICAL HISTORY - Past Medical History Cardiovascular: None Respiratory: None GI: None : None HEENT: None Psych: Depression, Anxiety, Post traumatic stress disorder Musculoskeletal: Chronic back pain Derm: None - Past Surgical History Past Surgical History: Yes General: Appendectomy, Bowel surgery, Colonoscopy Ortho: Other - Present Medications Home Medications: Ambulatory Orders Medication Instructions Recorded Confirmed Lorazepam [Ativan] 1 mg PO TID PRN #15 tablet 03/28/19 HYDROmorphone [Dilaudid] 2 mg PO Q6H PRN #15 tablet 04/20/19 Naproxen 500 mg PO BID #20 tablet 04/20/19 dexAMETHasone [Decadron] 4 mg PO DAILY #5 tablet 04/20/19 - Allergies Allergies/Adverse Reactions: Allergies Allergy/AdvReac Type Severity Reaction Status Date / Time oxycodone AdvReac Itching Verified 03/28/19 17:32 tramadol AdvReac Itching Verified 03/28/19 17:32 - Social History Does the pt smoke?: No Smoking Status: Former smoker Does the pt drink ETOH?: Yes Does the pt have substance abuse?: No - Immunizations Immunizations are current?: No - POLST Patient has POLST: No PD ED PE NORMAL - Vitals Vital signs reviewed: Yes - General General: Alert and oriented X 3, No acute distress, Well developed/nourished - Derm Derm: Normal color, Warm and dry - Extremities Extremities: Other (left lateral malleolus with redness mildly and very tender. No skin lesions. Mild effusion. Medially not tender. ) Results - Vitals Vitals: Oxygen O2 Source Room air PD MEDICAL DECISION MAKING - ED course Complexity details: considered differential (redness, tender without injury. Does not appear infection. Consider likely new gout), d/w patient Departure - Departure Disposition: 01 Home, Self Care Clinical Impression: Pain and swelling of left ankle Condition: Stable Record reviewed to determine appropriate education?: Yes Instructions: ED Arthritis Gout Prescriptions: dexAMETHasone [Decadron] 4 mg PO DAILY #5 tablet HYDROmorphone [Dilaudid] 2 mg PO Q6H PRN #15 tablet PRN Reason: Pain Naproxen 500 mg PO BID #20 tablet Comments: This seems likely to be either some tendinitis of the ankle or more likely an inflammatory process called gout by the appearance of it. Use anti-inflammatories of naproxen twice daily for the next week or so. Use Decadron steroid anti-inflammatory for 5 days as well. Take these both with food so not to bother her stomach. Add Tylenol or Dilaudid if needed for pain. This should improve over the next 2 to 3 days and presumably not pain medicines beyond that. Recheck if not improved well over the next few days return sooner if other symptoms develop. Discharge Date/Time: 04/20/19 13:35
[2019-04-20] MEDS ORDERED: DEXAMETHASONE 10 MG/ML VIAL PO STA (12:19)
[2019-04-20] MEDS ORDERED: CHERRY SYRUP 10 ML UDC PO ONE (12:19)
[2019-04-20] MEDS ORDERED: NAPROXEN 250 MG TABLET PO STA (12:19)
[2019-04-20 13:35] VITALS: BP 123/96
== END 2019-04-20 13:35 | disposition home or self-care (01) ==
LOC: ED 10:48
DX: M25.572 Pain in left ankle and joints of left foot (principal); M25.472 Effusion, left ankle; Z87.891 Personal history of nicotine dependence
CPT/HCPCS: 99283; A9270

== ENCOUNTER 2019-08-15 15:00 | Emergency (ER) | payer MEDICAID ==
[2019-08-15 15:16] VITALS: BP 149/83
--- NOTE | 2019-08-15 15:52 | ED Physician Documentation ---
History of Present Illness - Stated complaint Stated Complaint: ANXIETY - Chief complaint Chief Complaint: MHE - History obtained from History obtained from: Patient, Family - History of Present Illness Timing: How many weeks ago (1) Pain level max: 0 Pain level now: 0 - Additonal information Additional information: 53-year-old male states that he is out of his medications. He does not know what medications he takes. He states he is transitioning from [facility] to another facility. He did not contact his primary care provider to see if they could refill his medications or his old psychiatrist. He states he has been out for a week. Review of Systems Constitutional: denies: Fever, Chills Respiratory: denies: Cough GI: denies: Vomiting, Diarrhea : denies: Dysuria Skin: denies: Rash Musculoskeletal: denies: Neck pain, Back pain Psychiatric: denies: Suicidal, Homicidal, Hallucinations PD PAST MEDICAL HISTORY - Past Medical History Cardiovascular: None Respiratory: None GI: None : None HEENT: None Psych: Depression, Anxiety, Post traumatic stress disorder Musculoskeletal: Chronic back pain Derm: None - Past Surgical History Past Surgical History: Yes General: Appendectomy, Bowel surgery, Colonoscopy Ortho: Other - Present Medications Home Medications: Ambulatory Orders Medication Instructions Recorded Confirmed Lorazepam [Ativan] 1 mg PO TID PRN #15 tablet 03/28/19 HYDROmorphone [Dilaudid] 2 mg PO Q6H PRN #15 tablet 04/20/19 Naproxen 500 mg PO BID #20 tablet 04/20/19 dexAMETHasone [Decadron] 4 mg PO DAILY #5 tablet 04/20/19 Pregabalin [Lyrica] 200 mg PO TID #90 capsule 08/15/19 Quetiapine Fumarate [Seroquel] 200 mg PO BID #60 tablet 08/15/19 Venlafaxine ER [Effexor ER] 225 mg PO DAILY #90 capsule 08/15/19 hydroCHLOROthiazide 25 mg PO DAILY #30 tablet 08/15/19 [Hydrochlorothiazide] - Allergies Allergies/Adverse Reactions: Allergies Allergy/AdvReac Type Severity Reaction Status Date / Time oxycodone AdvReac Itching Verified 08/15/19 15:12 tramadol AdvReac Itching Verified 08/15/19 15:12 - Social History Does the pt smoke?: No Smoking Status: Former smoker Does the pt drink ETOH?: Yes Does the pt have substance abuse?: No - Immunizations Immunizations are current?: No - POLST Patient has POLST: No PD ED PE NORMAL - Vitals Vital signs reviewed: Yes - General General: Alert and oriented X 3, No acute distress, Well developed/nourished - HEENT HEENT: Moist mucous membranes - Neck Neck: Supple, no meningeal sign - Cardiac Cardiac: RRR - Respiratory Respiratory: No respiratory distress, Clear bilaterally - Abdomen Abdomen: Soft, Non tender, Non distended - Derm Derm: Warm and dry - Extremities Extremities: No edema - Neuro Neuro: Alert and oriented X 3 - Psych Psych: Normal mood, Normal affect Results - Vitals Vitals: Vital Signs - 24 hr 08/15/19 15:12 Temperature 36.8 C Heart Rate 116 H Respiratory 14 Rate Blood Pressure 149/83 H O2 Saturation 97 Oxygen O2 Source Room air PD MEDICAL DECISION MAKING - ED course Complexity details: considered differential, d/w patient ED course: Ricardo maldonado in [place] was contacted for a medication list. We will refill his medications for him and he will receive further refills from his doctor. Patient counseled regarding signs and symptoms for which I believe and urgent re-evaluation would be necessary. Patient with good understanding of and agreement to plan and is comfortable going home at this time This document was made in part using voice recognition software. While efforts are made to proofread this document, sound alike and grammatical errors may occur. Departure - Departure Disposition: 01 Home, Self Care Clinical Impression: Medication refill Condition: Good Follow-Up: Jennifer Lino ARNP [Primary Care Provider] - Within 1 week Prescriptions: hydroCHLOROthiazide [Hydrochlorothiazide] 25 mg PO DAILY #30 tablet Pregabalin [Lyrica] 200 mg PO TID #90 capsule Quetiapine Fumarate [Seroquel] 200 mg PO BID #60 tablet Venlafaxine ER [Effexor ER] 225 mg PO DAILY #90 capsule Comments: Follow-up with your doctor for further care. Your primary care doctor can also help refill your psychiatric medications as you are in between providers.
== END 2019-08-15 16:22 | disposition home or self-care (01) ==
LOC: ED 15:00
DX: Z76.0 Encounter for issue of repeat prescription (principal); Z87.891 Personal history of nicotine dependence
CPT/HCPCS: 99283

== ENCOUNTER 2019-11-15 19:45 | Emergency (ER) | payer MEDICAID ==
--- NOTE | 2019-11-15 19:48 | ED Physician Documentation ---
History of Present Illness - Stated complaint Stated Complaint: RT LEG PX - History obtained from History obtained from: Patient (the patient is a 54 y/o m who p/w a cc of right knee pain. the patient reports that he is "knee gave out" while he was walking. the patient denies any falls, head injury or neck injury. he denies any other complaints.) Review of Systems Constitutional: reports: Reviewed and negative Eyes: reports: Reviewed and negative Ears: reports: Reviewed and negative Nose: reports: Reviewed and negative Throat: reports: Reviewed and negative Cardiac: reports: Reviewed and negative Respiratory: reports: Reviewed and negative GI: reports: Reviewed and negative : reports: Reviewed and negative Skin: reports: Reviewed and negative Musculoskeletal: reports: Other (right knee pain) Neurologic: reports: Reviewed and negative Psychiatric: reports: Reviewed and negative Endocrine: reports: Reviewed and negative Immunocompromised: reports: Reviewed and negative PD PAST MEDICAL HISTORY - Past Medical History Cardiovascular: None Respiratory: None GI: None : None HEENT: None Psych: Depression, Anxiety, Post traumatic stress disorder Musculoskeletal: Chronic back pain Derm: None - Past Surgical History Past Surgical History: Yes General: Appendectomy, Bowel surgery, Colonoscopy Ortho: Other - Present Medications Home Medications: Ambulatory Orders Medication Instructions Recorded Confirmed Lorazepam [Ativan] 1 mg PO TID PRN #15 tablet 03/28/19 HYDROmorphone [Dilaudid] 2 mg PO Q6H PRN #15 tablet 04/20/19 Naproxen 500 mg PO BID #20 tablet 04/20/19 dexAMETHasone [Decadron] 4 mg PO DAILY #5 tablet 04/20/19 Pregabalin [Lyrica] 200 mg PO TID #90 capsule 08/15/19 Quetiapine Fumarate [Seroquel] 200 mg PO BID #60 tablet 08/15/19 Venlafaxine ER [Effexor ER] 225 mg PO DAILY #90 capsule 08/15/19 hydroCHLOROthiazide 25 mg PO DAILY #30 tablet 08/15/19 [Hydrochlorothiazide] - Allergies Allergies/Adverse Reactions: Allergies Allergy/AdvReac Type Severity Reaction Status Date / Time oxycodone AdvReac Itching Verified 11/15/19 19:48 tramadol AdvReac Itching Verified 11/15/19 19:48 - Social History Does the pt smoke?: No Smoking Status: Former smoker Does the pt drink ETOH?: Yes Does the pt have substance abuse?: No - Immunizations Immunizations are current?: No - POLST Patient has POLST: No PD ED PE NORMAL - Vitals Vital signs reviewed: Yes - General General: Alert and oriented X 3, No acute distress, Well developed/nourished - HEENT HEENT: Atraumatic, PERRL, Moist mucous membranes - Neck Neck: Supple, no meningeal sign - Cardiac Cardiac: RRR, No murmur, Strong equal pulses - Respiratory Respiratory: No respiratory distress, Clear bilaterally - Abdomen Abdomen: Normal bowel sounds, Soft, Non tender, Non distended, No organomegaly - Derm Derm: Normal color, Warm and dry, No rash - Extremities Extremities: No deformity, No edema, No calf tenderness / cord, Other (diffuse ttp to the right knee, no obvioius deformity, refusing to bear weight. 2+ dp/pt pulses, silt, no gross deformity, no instability on ant/post draw, no swelling, no ballotment, no effusions, no erythema. 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 patient is asking for dilaudid. i explained to the patient that he will not be receiving dilaudid, however an x ray will be ordered as well as crutches, ice pack, knee immobilizer and an im injection of toradol. ) Departure - Departure Disposition: 01 Home, Self Care Clinical Impression: Pain of lower extremity Qualifiers: Laterality: right Qualified Code(s): M79.604 - Pain in right leg Knee pain, right Qualifiers: Chronicity: acute Qualified Code(s): M25.561 - Pain in right knee Condition: Stable Instructions: ED Sprain Knee Follow-Up: Jennifer Lino ARNP [Primary Care Provider] - Tomorrow Discharge Date/Time: 11/15/19 22:02
[2019-11-15] MEDS ORDERED: KETOROLAC 30 MG/ML VIAL IM STA (20:24)
--- NOTE | 2019-11-15 21:30 | XRAY Report ---
Reason: pain Procedure Date: 11/15/2019 Accession Number: [id number] / [id number] Procedure: XR - Knee 2 View RT CPT Code: Final Report FULL RESULT: EXAM: RIGHT KNEE RADIOGRAPHY EXAM DATE: 11/15/2019 08:35 PM. CLINICAL HISTORY: Pain. COMPARISON: FEMUR RT 08/02/2013 9:19 AM. TECHNIQUE: 3 views. FINDINGS: Bones: There is question of some displacement inferiorly of the lateral tibial plateau noted on 2 views. Joints: No chondrocalcinosis. No evidence for joint effusion. There is some calcification/ossification in the distal quadriceps tendon. Soft Tissues: Normal. No soft tissue swelling. IMPRESSION: 1. Depression of the lateral tibial plateau of uncertain etiology. Indeterminate age. No joint effusion/hemarthrosis to suggest any type of acute process. RADIA
[2019-11-15 22:02] VITALS: BP 126/99
== END 2019-11-15 22:02 | disposition home or self-care (01) ==
LOC: ED 19:45
DX: M79.604 Pain in right leg (principal); M25.561 Pain in right knee; Z87.891 Personal history of nicotine dependence
CPT/HCPCS: 96372; 99283

== ENCOUNTER 2020-03-01 10:13 | Outpatient (CLI) | payer MEDICAID | END 2020-03-01 10:14 | disposition EMS.NT | LOC: EMS 10:13 | PROVIDERS: ATTEND Surgery | DX: Z04.1 Encounter for examination and observation following transport accident (principal) ==

== ENCOUNTER 2020-05-19 06:20 | Emergency (ER) | payer MEDICAID ==
--- NOTE | 2020-05-19 06:30 | ED Physician Documentation ---
<Kodak Bowie A - Last Filed: 05/19/20 06:30> PD HPI MHE - Stated complaint Stated Complaint: MHE - Chief complaint Chief Complaint: MHE PD PAST MEDICAL HISTORY - Past Medical History Cardiovascular: None Respiratory: None GI: None : None HEENT: None Psych: Depression, Anxiety, Post traumatic stress disorder Musculoskeletal: Chronic back pain Derm: None - Past Surgical History Past Surgical History: Yes General: Appendectomy, Bowel surgery, Colonoscopy Ortho: Other - Present Medications Home Medications: Ambulatory Orders Medication Instructions Recorded Confirmed Lorazepam [Ativan] 1 mg PO TID PRN #15 tablet 03/28/19 HYDROmorphone [Dilaudid] 2 mg PO Q6H PRN #15 tablet 04/20/19 Naproxen 500 mg PO BID #20 tablet 04/20/19 dexAMETHasone [Decadron] 4 mg PO DAILY #5 tablet 04/20/19 Pregabalin [Lyrica] 200 mg PO TID #90 capsule 08/15/19 Quetiapine Fumarate [Seroquel] 200 mg PO BID #60 tablet 08/15/19 Venlafaxine ER [Effexor ER] 225 mg PO DAILY #90 capsule 08/15/19 hydroCHLOROthiazide 25 mg PO DAILY #30 tablet 08/15/19 [Hydrochlorothiazide] - Allergies Allergies/Adverse Reactions: Allergies Allergy/AdvReac Type Severity Reaction Status Date / Time oxycodone AdvReac Itching Verified 11/15/19 19:48 tramadol AdvReac Itching Verified 11/15/19 19:48 - Social History Does the pt smoke?: No Smoking Status: Former smoker Does the pt drink ETOH?: Yes Does the pt have substance abuse?: No - Immunizations Immunizations are current?: No - POLST Patient has POLST: No Departure - Departure Clinical Impression: Depressive disorder Alcoholic intoxication Qualifiers: Complication of substance-induced condition: uncomplicated Qualified Code(s): F10.920 - Alcohol use, unspecified with intoxication, uncomplicated Condition: Stable <Librado Zendejas - Last Filed: 05/19/20 19:20> PD HPI MHE - History obtained from History obtained from: Patient - Additional information Additional information: 54-year-old gentleman with alcoholism presents voluntarily requesting admission and detoxification. Last drink was this morning. Has a lot of personal stressors regarding his children. Vague SI no plan. Review of Systems Ten Systems: 10 systems reviewed and negative Constitutional: reports: Reviewed and negative Nose: reports: Reviewed and negative Throat: reports: Reviewed and negative Musculoskeletal: reports: Back pain (chronic) PD ED PE NORMAL - Vitals Vital signs reviewed: Yes - General General: Alert and oriented X 3, No acute distress - HEENT HEENT: PERRL, EOMI - Neck Neck: Supple, no meningeal sign, No bony TTP - Cardiac Cardiac: RRR, No murmur - Respiratory Respiratory: No respiratory distress, Clear bilaterally - Abdomen Abdomen: Soft, Non tender - Back Back: No CVA TTP, No spinal TTP - Derm Derm: Normal color, Warm and dry - Extremities Extremities: No edema, No calf tenderness / cord - Neuro Neuro: Alert and oriented X 3, No motor deficit, No sensory deficit, Normal spee ch Results - Vitals Vitals: Vital Signs - 24 hr 05/19/20 05/19/20 06:22 15:52 Temperature 36.5 C 36.9 C Heart Rate 102 H 102 H Respiratory 18 18 Rate Blood Pressure 136/78 H 125/73 O2 Saturation 96 98 Oxygen O2 Source Room air - EKG (time done) 0725 Rate: Rate (enter#) (87) Rhythm: NSR [place]: Normal Intervals: Normal RI. No: Prolonged QT QRS: Normal (except early R-wave transition) Computer interpretation: Agree with computer - Labs Labs: Laboratory Tests 05/19/20 05/19/20 05/19/20 06:29 06:55 06:55 WBC 6.0 RBC 3.64 L Hgb 12.1 L Hct 36.0 L MCV 98.9 H MCH 33.2 H MCHC 33.6 RDW 17.1 H Plt Count 206 MPV 9.8 Neut # (Auto) 4.5 Lymph # (Auto) 1.0 L [place] # (Auto) 0.4 Eos # (Auto) 0.1 Baso # (Auto) 0.0 Absolute Nucleated RBC 0.00 Nucleated RBC % 0.0 Sodium 139 Potassium 3.9 Chloride 104 Carbon Dioxide 24 Anion Gap 11.0 BUN 13 Creatinine 0.7 Estimated GFR (MDRD) 118 Glucose 101 H Calcium 9.2 Magnesium 2.0 Total Bilirubin 0.7 AST 46 H ALT 39 Alkaline Phosphatase 62 Total Protein 7.1 Albumin 4.0 Globulin 3.1 Albumin/Globulin Ratio 1.3 Lipase 48 TSH Urine Color YELLOW Urine Clarity CLEAR Urine pH 6.0 Ur Specific [place] 1.010 Urine Protein NEGATIVE Urine Glucose (UA) NEGATIVE Urine Ketones NEGATIVE Urine Occult Blood NEGATIVE Urine Nitrite NEGATIVE Urine Bilirubin NEGATIVE Urine Urobilinogen 0.2 (NORMAL) Ur Leukocyte Esterase NEGATIVE Ur Microscopic Review NOT INDICATED Urine Culture Comments NOT INDICATED Salicylates < 6.0 Urine Opiates Screen NEGATIVE Ur Oxycodone Screen NEGATIVE Urine Methadone Screen NEGATIVE Ur Propoxyphene Screen NEGATIVE Acetaminophen < 10 L Ur Barbiturates Screen NEGATIVE Ur Tricyclics Screen NEGATIVE Ur Phencyclidine Scrn NEGATIVE Ur Amphetamine Screen NEGATIVE U Methamphetamines Scrn NEGATIVE U Benzodiazepines Scrn NEGATIVE Urine Cocaine Screen NEGATIVE U Cannabinoids Screen NEGATIVE Ethyl Alcohol 146.3 05/19/20 05/19/20 06:55 10:20 WBC RBC Hgb Hct MCV MCH MCHC RDW Plt Count MPV Neut # (Auto) Lymph # (Auto) [place] # (Auto) Eos # (Auto) Baso # (Auto) Absolute Nucleated RBC Nucleated RBC % Sodium Potassium Chloride Carbon Dioxide Anion Gap BUN Creatinine Estimated GFR (MDRD) Glucose Calcium Magnesium Total Bilirubin AST ALT Alkaline Phosphatase Total Protein Albumin Globulin Albumin/Globulin Ratio Lipase TSH 2.87 Urine Color Urine Clarity Urine pH Ur Specific [place] Urine Protein Urine Glucose (UA) Urine Ketones Urine Occult Blood Urine Nitrite Urine Bilirubin Urine Urobilinogen Ur Leukocyte Esterase Ur Microscopic Review Urine Culture Comments Salicylates Urine Opiates Screen Ur Oxycodone Screen Urine Methadone Screen Ur Propoxyphene Screen Acetaminophen Ur Barbiturates Screen Ur Tricyclics Screen Ur Phencyclidine Scrn Ur Amphetamine Screen U Methamphetamines Scrn U Benzodiazepines Scrn Urine Cocaine Screen U Cannabinoids Screen Ethyl Alcohol 28.4 PD MEDICAL DECISION MAKING - ED course ED course: 54-year-old Man with depression and alcoholism presents for voluntary detoxification and would like to go to [place]. Social work saw the patient, they will need coronavirus testing prior to transport. He is stable at shift change. Departure - Departure Record reviewed to determine appropriate education?: Yes
[2020-05-19] MEDS ORDERED: FOLIC ACID INJ 1 MG, THIAMINE INJ 100 MG, MAGNESIUM SULFATE 2 GM, MULTIVITAMIN 10 ML in... IV STA ×5 (06:35)
[2020-05-19 06:47] LABS: MUDS CUTOFF CONCENTRATIONS CUTOFF CONC BELOW:
[2020-05-19 06:53] LABS: BILIRUBIN,URINE NEGATIVE (NEGATIVE); GLUCOSE, URINE (UA) NEGATIVE (NEGATIVE); KETONES,URINE (UA) NEGATIVE (NEGATIVE); LEUKOCYTE ESTERASE, URINE NEGATIVE (NEGATIVE); NITRITE,URINE NEGATIVE (NEGATIVE); OCCULT BLOOD,URINE NEGATIVE (NEGATIVE); PROTEIN,URINE NEGATIVE (NEGATIVE); UROBILINOGEN,URINE 0.2 (NORMAL) E.U./dL (NORMAL)
[2020-05-19 06:56] LABS: CLARITY,URINE CLEAR (CLEAR)
[2020-05-19 07:03] LABS: BASOPHILS % (AUTO) 0.3 %; EOSINOPHILS # (AUTO) 0.1 10^3/uL (0.0-0.7); EOSINOPHILS % (AUTO) 1.8 %; HGB - HEMOGLOBIN 12.1 g/dL (14.0-18.0); LYMPHOCYTES % (AUTO) 16.8 %; MEAN CORPUSCULAR HEMOGLOBIN 33.2 pg (27.0-31.0); MEAN CORPUSCULAR HGB CONC 33.6 g/dL (32.0-36.0); MEAN CORPUSCULAR VOLUME 98.9 fL (80.0-94.0); MEAN PLATELET VOLUME 9.8 fL (7.4-11.4); MONOCYTES # (AUTO) 0.4 10^3/uL (0.0-1.0); MONOCYTES % (AUTO) 6.7 %; NEUTROPHILS # (AUTO) 4.5 10^3/uL (1.5-6.6); NEUTROPHILS % (AUTO) 74.2 %; PLT - PLATELET COUNT 206 10^3/uL (130-450); RED BLOOD COUNT 3.64 10^6/uL (4.70-6.10); RED CELL DISTRIBUTION WIDTH 17.1 % (12.0-15.0)
[2020-05-19 07:03] LABS: AMPHETAMINE SCREEN,URINE NEGATIVE (NEGATIVE); BENZODIAZEPINES SCREEN, URINE NEGATIVE (NEGATIVE); COCAINE SCREEN URINE NEGATIVE (NEGATIVE); METHADONE SCREEN, URINE NEGATIVE (NEGATIVE); METHAMPHETAMINES SCREEN, URINE NEGATIVE (NEGATIVE); OPIATE SCREEN, URINE NEGATIVE (NEGATIVE); OXYCODONE SCREEN, URINE NEGATIVE (NEGATIVE); PROPOXYPHENE SCREEN, URINE NEGATIVE (NEGATIVE); TRICYCLIC ANTIDEPRESSANT,URINE NEGATIVE (NEGATIVE)
[2020-05-19 07:15] LABS: ACETAMINOPHEN < 10 ug/mL (10-30); ALBUMIN/GLOBULIN RATIO 1.3 (1.0-2.2); ALKALINE PHOSPHATASE 62 IU/L (42-121); ALT ALANINE AMINOTRANSFERASE 39 IU/L (10-60); AST ASPARTATE AMINOTRANSFERASE 46 IU/L (10-42); BILIRUBIN,TOTAL 0.7 mg/dL (0.2-1.0); BUN - BLOOD UREA NITROGEN 13 mg/dL (6-20); CALCIUM 9.2 mg/dL (8.5-10.3); CARBON DIOXIDE - CO2 24 mmol/L (21-32); CHLORIDE 104 mmol/L (101-111); CREATININE 0.7 mg/dL (0.6-1.2); GLUCOSE 101 mg/dL (70-100); LIPASE 48 U/L (22-51); SALICYLATE < 6.0 mg/dL; SODIUM 139 mmol/L (135-145); TOTAL PROTEIN 7.1 g/dL (6.7-8.2)
[2020-05-19] MEDS ORDERED: ONDANSETRON 4 MG/2 ML VIAL IVP STA (10:46)
[2020-05-19] MEDS ORDERED: KETOROLAC 30 MG/ML VIAL IVP STA (11:13)
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
[2020-05-20] MEDS ORDERED: LOPERAMIDE 2 MG CAPSULE PO STA (00:11)
[2020-05-20] MEDS: PANTOPRAZOLE 40 MG VIAL IVP STA (00:29)
[2020-05-20] MEDS ORDERED: KETOROLAC 30 MG/ML VIAL IVP STA (03:20)
[2020-05-20] MEDS ORDERED: FAMOTIDINE 20 MG/2 ML SYRINGE IVP STA (03:20)
--- NOTE | 2020-05-20 09:07 | ED Physician Documentation ---
ED Addendum - Addendum Addendum: 05/20/20 09:07 Evaluated patient this morning. He is feeling better. He is not showing any signs of alcohol withdrawal. No tachycardia, no tremors, no anxiety, no sweating. No hallucinations. Has never had seizures or severe alcohol withdrawal. Patient is eating breakfast this morning. Awaiting placement from social work.
--- NOTE | 2020-05-20 11:47 | ED Physician Documentation ---
ED Addendum - Addendum Addendum: 05/20/20 11:46 EKG 1122 88 NSR, normal axis, ST elev with repol. non-ischemic
--- NOTE | 2020-05-20 15:33 | ED Physician Documentation ---
ED Addendum - Addendum Addendum: 05/20/20 15:33 Patient accepted to [facility] health unit by Dr. Vee. COBRA forms completed. Patient transferred. Patient is voluntary. Departure - Departure Disposition: [facility] Psych Hosp/Unit DC/Xfer Clinical Impression: Depressive disorder Alcoholic intoxication Qualifiers: Complication of substance-induced condition: uncomplicated Qualified Code(s): F10.920 - Alcohol use, unspecified with intoxication, uncomplicated Condition: Stable
[2020-05-20 16:56] VITALS: BP 132/85
== END 2020-05-20 17:21 ==
LOC: ED 06:20
DX: F32.9 Major depressive disorder, single episode, unspecified (principal); F10.229 Alcohol dependence with intoxication, unspecified; F39 Unspecified mood [affective] disorder; F41.9 Anxiety disorder, unspecified; F43.10 Post-traumatic stress disorder, unspecified; Z87.891 Personal history of nicotine dependence; Z63.79 Other stressful life events affecting family and household; Z20.828 Contact with and (suspected) exposure to other viral communicable diseases
CPT/HCPCS: 36415; 80053; 80306; 80307; 80320; 80329; 81003; 83690; 83735; 84443; 85025; 87635; 93005; 96374; 96375; 99283; 99285; A9270; G0426; J3411; 81001; 87086

== ENCOUNTER 2020-08-29 21:07 | Emergency (ER) | payer MEDICAID ==
[2020-08-29 21:38] LABS: MUDS CUTOFF CONCENTRATIONS CUTOFF CONC BELOW:
[2020-08-29 21:42] LABS: GLUCOSE, URINE (UA) NEGATIVE (NEGATIVE); KETONES,URINE (UA) NEGATIVE (NEGATIVE); LEUKOCYTE ESTERASE, URINE NEGATIVE (NEGATIVE); NITRITE,URINE NEGATIVE (NEGATIVE); OCCULT BLOOD,URINE NEGATIVE (NEGATIVE); PROTEIN,URINE NEGATIVE (NEGATIVE); UROBILINOGEN,URINE 4 E.U./dL (NORMAL)
[2020-08-29 21:45] LABS: BILIRUBIN,URINE NEGATIVE (NEGATIVE); CLARITY,URINE HAZY (CLEAR); ICTOTEST,URINE NEGATIVE
[2020-08-29 21:49] LABS: BASOPHILS % (AUTO) 0.5 %; EOSINOPHILS # (AUTO) 0.1 10^3/uL (0.0-0.7); EOSINOPHILS % (AUTO) 1.4 %; HGB - HEMOGLOBIN 13.1 g/dL (14.0-18.0); LYMPHOCYTES % (AUTO) 21.8 %; MEAN CORPUSCULAR HEMOGLOBIN 30.9 pg (27.0-31.0); MEAN CORPUSCULAR HGB CONC 34.1 g/dL (32.0-36.0); MEAN CORPUSCULAR VOLUME 90.6 fL (80.0-94.0); MEAN PLATELET VOLUME 11.3 fL (7.4-11.4); MONOCYTES # (AUTO) 0.2 10^3/uL (0.0-1.0); MONOCYTES % (AUTO) 4.8 %; NEUTROPHILS # (AUTO) 3.1 10^3/uL (1.5-6.6); NEUTROPHILS % (AUTO) 71.3 %; PLT - PLATELET COUNT 98 10^3/uL (130-450); RED BLOOD COUNT 4.24 10^6/uL (4.70-6.10); RED CELL DISTRIBUTION WIDTH 16.9 % (12.0-15.0); WHITE BLOOD COUNT 4.4 x10^3/uL (4.8-10.8)
[2020-08-29 21:52] LABS: BACTERIA,URINE None Seen /HPF (None Seen); RBC,URINE None Seen /HPF (0-5); SQUAMOUS EPITHELIAL CELL,UR NONE SEEN (<= Few)
[2020-08-29 21:53] LABS: AMPHETAMINE SCREEN,URINE NEGATIVE (NEGATIVE); BENZODIAZEPINES SCREEN, URINE NEGATIVE (NEGATIVE); COCAINE SCREEN URINE NEGATIVE (NEGATIVE); METHADONE SCREEN, URINE NEGATIVE (NEGATIVE); METHAMPHETAMINES SCREEN, URINE NEGATIVE (NEGATIVE); OPIATE SCREEN, URINE NEGATIVE (NEGATIVE); OXYCODONE SCREEN, URINE NEGATIVE (NEGATIVE); PROPOXYPHENE SCREEN, URINE NEGATIVE (NEGATIVE); TRICYCLIC ANTIDEPRESSANT,URINE NEGATIVE (NEGATIVE)
[2020-08-29 22:36] LABS: ACETAMINOPHEN < 10 ug/mL (10-30); ALBUMIN 3.8 g/dL (3.2-5.5); ALBUMIN/GLOBULIN RATIO 1.1 (1.0-2.2); ALKALINE PHOSPHATASE 167 IU/L (42-121); ALT ALANINE AMINOTRANSFERASE 130 IU/L (10-60); AST ASPARTATE AMINOTRANSFERASE 322 IU/L (10-42); BILIRUBIN,TOTAL 2.9 mg/dL (0.2-1.0); BUN - BLOOD UREA NITROGEN 5 mg/dL (6-20); CALCIUM 8.4 mg/dL (8.5-10.3); CARBON DIOXIDE - CO2 25 mmol/L (21-32); CHLORIDE 94 mmol/L (101-111); CREATININE 0.8 mg/dL (0.6-1.2); GLUCOSE 145 mg/dL (70-100); LIPASE 76 U/L (22-51); SALICYLATE < 6.0 mg/dL; TOTAL PROTEIN 7.3 g/dL (6.7-8.2)
--- NOTE | 2020-08-29 22:52 | ED Physician Documentation ---
History of Present Illness - Stated complaint Stated Complaint: DETOX - Chief complaint Chief Complaint: MHE - History obtained from History obtained from: Patient - Additonal information Additional information: 54-year-old man with history of alcohol abuse and depression presents with request for detox. He states that he would like to go to [place] and needs to be medically cleared. Last alcohol intake about 15 minutes prior to arrival. Last inpatient hospitalization in June with relapse soon after. endorses passive thoughts of suicide but no plan. denies HI or AVH. no other complaints at this time. Review of Systems Ten Systems: 10 systems reviewed and negative Psychiatric: reports: Depressed PD PAST MEDICAL HISTORY - Past Medical History Cardiovascular: None Respiratory: None Neuro: Head injury GI: None : None HEENT: None Psych: Depression, Anxiety, Post traumatic stress disorder Musculoskeletal: Chronic back pain Derm: None - Past Surgical History Past Surgical History: Yes General: Appendectomy, Bowel surgery, Colonoscopy Ortho: Other - Present Medications Home Medications: Ambulatory Orders Medication Instructions Recorded Confirmed Pregabalin [Lyrica] 200 mg PO TID #90 capsule 08/15/19 08/29/20 Quetiapine Fumarate [Seroquel] 200 mg PO BID #60 tablet 08/15/19 08/29/20 Venlafaxine ER [Effexor ER] 225 mg PO DAILY #90 capsule 08/15/19 08/29/20 Metoprolol Succinate [Toprol Xl] 25 mg 08/29/20 - Allergies Allergies/Adverse Reactions: Allergies Allergy/AdvReac Type Severity Reaction Status Date / Time oxycodone AdvReac Itching Verified 08/29/20 21:11 tramadol AdvReac Itching Verified 08/29/20 21:11 - Social History Does the pt smoke?: No Smoking Status: Never smoker Does the pt drink ETOH?: Yes Does the pt have substance abuse?: No - Immunizations Immunizations are current?: No - POLST Patient has POLST: No PD ED PE NORMAL - Vitals Vital signs reviewed: Yes - General General: Alert and oriented X 3, No acute distress - HEENT HEENT: Atraumatic, PERRL, EOMI - Neck Neck: Supple, no meningeal sign - Cardiac Cardiac: RRR - Respiratory Respiratory: No respiratory distress, Clear bilaterally - Abdomen Abdomen: Non tender, Non distended - Derm Derm: Normal color, Warm and dry - Extremities Extremities: No deformity - Neuro Neuro: Alert and oriented X 3 - Psych Psych: Other (clinically intoxicated) Results - Vitals Vitals: Vital Signs - 24 hr 08/29/20 08/30/20 21:11 01:20 Temperature 36.6 C 37.0 C Heart Rate 100 96 Respiratory 16 17 Rate Blood Pressure 150/100 H 108/60 O2 Saturation 99 96 Oxygen O2 Source Room air - EKG (time done) 2310 Rate: Rate (enter#) (97) Rhythm: NSR [place]: Normal 0108 Rate: Rate (enter#) (92) Rhythm: NSR [place]: Normal Compare to prior EKG: Unchanged from prior EKG (patient c/o chest discomfort he attributes to anxiety. ekg unchanged from earlier this evening.) - Labs Labs: Laboratory Tests 08/29/20 08/29/20 08/29/20 21:30 21:34 21:34 WBC 4.4 L RBC 4.24 L Hgb 13.1 L Hct 38.4 L MCV 90.6 MCH 30.9 MCHC 34.1 RDW 16.9 H Plt Count 98 L MPV 11.3 Neut # (Auto) 3.1 Lymph # (Auto) 1.0 L [place] # (Auto) 0.2 Eos # (Auto) 0.1 Baso # (Auto) 0.0 Absolute Nucleated RBC 0.00 Nucleated RBC % 0.0 Sodium 133 L Potassium 2.9 L Chloride 94 L Carbon Dioxide 25 Anion Gap 14.0 H BUN 5 L Creatinine 0.8 Estimated GFR (MDRD) 102 Glucose 145 H Calcium 8.4 L Total Bilirubin 2.9 H AST 322 H ALT 130 H Alkaline Phosphatase 167 H Total Protein 7.3 Albumin 3.8 Globulin 3.5 Albumin/Globulin Ratio 1.1 Lipase 76 H TSH Urine Color DARK YELLOW Urine Clarity HAZY Urine pH 6.0 Ur Specific [place] 1.010 Urine Protein NEGATIVE Urine Glucose (UA) NEGATIVE Urine Ketones NEGATIVE Urine Occult Blood NEGATIVE Urine Nitrite NEGATIVE Urine Bilirubin NEGATIVE Urine Urobilinogen 4 H Ur Leukocyte Esterase NEGATIVE Urine RBC None Seen Urine WBC 0-3 Ur Squamous Epith Cells NONE SEEN Urine Bacteria None Seen Ur Microscopic Review INDICATED Urine Culture Comments NOT INDICATED Nasal Adenovirus (PCR) Nasal B. parapertussis DNA (PCR) Nasal Coronavir 229E PCR Nasal Coronavir HKU1 PCR Nasal Coronavir NL63 PCR Nasal Coronavir OC43 PCR Nasal Enterovir/Rhinovir PCR Nasal Influenza B PCR Nasal Influenza A PCR Nasal Parainfluen 1 PCR Nasal Parainfluen 2 PCR Nasal Parainfluen 3 PCR Nasal Parainfluen 4 PCR Nasal RSV (PCR) Nasal B.pertussis DNA PCR Nasal C.pneumoniae (PCR) [place] Human Metapneumo PCR Nasal M.pneumoniae (PCR) Nasal SARS-CoV-2 (PCR) Salicylates < 6.0 Urine Opiates Screen NEGATIVE Ur Oxycodone Screen NEGATIVE Urine Methadone Screen NEGATIVE Ur Propoxyphene Screen NEGATIVE Acetaminophen < 10 L Ur Barbiturates Screen NEGATIVE Ur Tricyclics Screen NEGATIVE Ur Phencyclidine Scrn NEGATIVE Ur Amphetamine Screen NEGATIVE U Methamphetamines Scrn NEGATIVE U Benzodiazepines Scrn NEGATIVE Urine Cocaine Screen NEGATIVE U Cannabinoids Screen NEGATIVE Ethyl Alcohol 314.6 08/29/20 08/29/20 08/30/20 21:34 21:57 06:26 WBC RBC Hgb Hct MCV MCH MCHC RDW Plt Count MPV Neut # (Auto) Lymph # (Auto) [place] # (Auto) Eos # (Auto) Baso # (Auto) Absolute Nucleated RBC Nucleated RBC % Sodium Potassium Chloride Carbon Dioxide Anion Gap BUN Creatinine Estimated GFR (MDRD) Glucose Calcium Total Bilirubin AST ALT Alkaline Phosphatase Total Protein Albumin Globulin Albumin/Globulin Ratio Lipase TSH 2.86 Urine Color Urine Clarity Urine pH Ur Specific [place] Urine Protein Urine Glucose (UA) Urine Ketones Urine Occult Blood Urine Nitrite Urine Bilirubin Urine Urobilinogen Ur Leukocyte Esterase Urine RBC Urine WBC Ur Squamous Epith Cells Urine Bacteria Ur Microscopic Review Urine Culture Comments Nasal Adenovirus (PCR) NOT DETECTED Nasal B. parapertussis DNA (PCR) NOT DETECTED Nasal Coronavir 229E PCR NOT DETECTED Nasal Coronavir HKU1 PCR NOT DETECTED Nasal Coronavir NL63 PCR NOT DETECTED Nasal Coronavir OC43 PCR NOT DETECTED Nasal Enterovir/Rhinovir PCR NOT DETECTED Nasal Influenza B PCR NOT DETECTED Nasal Influenza A PCR NOT DETECTED Nasal Parainfluen 1 PCR NOT DETECTED Nasal Parainfluen 2 PCR NOT DETECTED Nasal Parainfluen 3 PCR NOT DETECTED Nasal Parainfluen 4 PCR NOT DETECTED Nasal RSV (PCR) NOT DETECTED Nasal B.pertussis DNA PCR NOT DETECTED Nasal C.pneumoniae (PCR) NOT DETECTED [place] Human Metapneumo PCR NOT DETECTED Nasal M.pneumoniae (PCR) NOT DETECTED Nasal SARS-CoV-2 (PCR) NOT DETECTED Salicylates Urine Opiates Screen Ur Oxycodone Screen Urine Methadone Screen Ur Propoxyphene Screen Acetaminophen Ur Barbiturates Screen Ur Tricyclics Screen Ur Phencyclidine Scrn Ur Amphetamine Screen U Methamphetamines Scrn U Benzodiazepines Scrn Urine Cocaine Screen U Cannabinoids Screen Ethyl Alcohol 12.8 PD MEDICAL DECISION MAKING - ED course ED course: 54-year-old man presents for medical clearance in anticipation of going to detox. Will obtain labs, telepsych consult, social work in the morning. Note that overnight he c/o chest pain briefly that he attributed to anxiety/fears of withdrawal. ekg was repeated without any acute changes and the chest pain self-resolved. patient in NAD, requesting more antinausea medication. will s/o to day time doctor for social work evaluation.
[2020-08-29 22:53] LABS: C. PNEUMONIAE- RESP PCR PANEL NOT DETECTED
[2020-08-30] MEDS ORDERED: ONDANSETRON ODT 4 MG TABLET TL STA ×4 (00:31→13:21)
[2020-08-30] MEDS ORDERED: chlordiazePOXIDE 25 MG CAPSULE PO STA ×2 (00:35→03:05)
[2020-08-30] MEDS ORDERED: POTASSIUM CHLORIDE 20 MEQ/15 ML UDC PO STA (01:37)
[2020-08-30] MEDS ORDERED: hydrOXYzine PAMOATE 25 MG CAPSULE PO STA (01:47)
[2020-08-30] MEDS ORDERED: POTASSIUM CHLORIDE 20 MEQ/15 ML UDC PO SCH ×2 (02:00→08:00)
[2020-08-30] MEDS ORDERED: METOCLOPRAMIDE 10 MG TABLET PO STA (06:13)
[2020-08-30] MEDS ORDERED: IBUPROFEN 800 MG TABLET PO STA (07:37)
--- NOTE | 2020-08-30 13:09 | ED Physician Documentation ---
ED Addendum - Addendum Addendum: 08/30/20 13:[address] Nagy at shift change, seen by social work and a voluntary bed was arranged at [facility] under care of Dr. Long. He is stable for transport. Disposition transfer to psychiatric facility Condition stable Diagnoses 1. Alcohol intoxication 2. Depression number 3. Suicidal ideation.
[2020-08-30] MEDS ORDERED: LORazepam 1 MG TABLET PO STA (13:29)
[2020-08-30] MEDS ORDERED: PROMETHAZINE 25 MG TABLET PO STA (16:01)
[2020-08-30 16:23] VITALS: BP 119/73
== END 2020-08-30 16:27 ==
LOC: ED 21:07
DX: F10.129 Alcohol abuse with intoxication, unspecified (principal); F32.9 Major depressive disorder, single episode, unspecified; R45.851 Suicidal ideations; F41.9 Anxiety disorder, unspecified; R07.89 Other chest pain; Z20.822 Contact with and (suspected) exposure to COVID-19
CPT/HCPCS: 0202U; 36415; 80053; 80306; 80307; 80320; 80329; 81001; 83690; 84443; 85025; 93005; 99283; 99285; A9270; J8499; Q0162; Q0169; 81003; 87086